=== PATIENT | female | born 1985 ===

== ENCOUNTER 2017-06-10 01:43 | Emergency (ER) | payer BC ==
[~2017-06-10] VITALS: Wt 59.0 kg
--- NOTE | 2017-06-10 02:54 | ERA ---
ER Documentation Chief Complaint Date/Time DATE: 06/10/17 TIME: 02:54 Chief Complaint AP HPI The patient is a 32-year-old female, presenting with acute epigastric abdominal pain that began about 10:30 PM, associated with vomiting of mostly mucus. She denies fever, chills, neck pain, chest pain, dyspnea, dysuria, diarrhea. She does not smoke, drank last night, denies illicit drug Past medical history: Depression Past medical history: Nasal surgery and tonsillectomy ROS All systems reviewed and are negative except as per history of present illness. Medications Home Meds Active Scripts Pantoprazole* (Protonix*) 40 Mg Tablet.dr, 40 MG PO DAILY, #20 TAB Prov:ZOIE GHOSH MD 06/10/17 Ondansetron (Ondansetron Odt) 4 Mg Tab.rapdis, 4 MG PO Q6H Y for NAUSEA AND/OR VOMITING, #10 TAB Prov:ZOIE GHOSH MD 06/10/17 Reported Medications Citalopram Hydrobromide* (Celexa*) 10 Mg Tablet, 10 MG PO DAILY, #30 TAB 06/10/17 Allergies Allergies: Uncoded Allergies: SHELLFISH (Allergy, Intermediate, vomiting, 06/10/17) Physical Exam Vitals Vital Signs Date Time Temp Pulse Resp B/P Pulse Ox O2 Delivery O2 Flow Rate FiO2 06/10/17 04:52 68 17 94/64 98 Room Air 06/10/17 02:29 97.8 84 20 122/87 99 Physical Exam Const: No acute distress. Head: Atraumatic. Eyes: Normal Conjunctiva. ENT: Normal External Ears, Nose and Mouth. Neck: Full range of motion. No meningismus. Resp: Clear to auscultation bilaterally. Cardio: Regular rate and rhythm. Abd: Soft, non distended, normal bowel sounds, Minimal epigastric and left upper quadrant tenderness, no right lower quadrant, CVA, rigidity, rebound tenderness Skin: No petechiae or rashes. Back: No midline or flank tenderness. Ext: No cyanosis, or edema. Neur: Awake and alert. No focal deficit Psych: Normal Mood and Affect. Result Diagram: 06/10/17 0315 06/10/17 0315 Results 24 hrs Laboratory Tests Test 06/10/17 03:15 06/10/17 03:26 White Blood Count 8.910^3/ul Red Blood Count 4.3810^6/ul Hemoglobin 13.5g/dl Hematocrit 39.3% Mean Corpuscular Volume 89.7fl Mean Corpuscular Hemoglobin 30.8pg Mean Corpuscular Hemoglobin Concent 34.4g/dl Red Cell Distribution Width 11.3% Platelet Count 04453^3/UL Mean Platelet Volume 10.6fl Neutrophils % 78.9% Lymphocytes % 16.2% Monocytes % 3.6% Eosinophils % 0.6% Basophils % 0.3% Nucleated Red Blood Cells % 0.0/100WBC Neutrophils # (Manual) 7.010^3/ul Lymphocytes # 1.410^3/ul Monocytes # 0.310^3/ul Eosinophils # 0.110^3/ul Basophils # 0.010^3/ul Nucleated Red Blood Cells # 0.010^3/ul Sodium Level 141mmol/L Potassium Level 4.1mmol/L Chloride Level 102mmol/L Carbon Dioxide Level 31mmol/L Anion Gap 12 Blood Urea Nitrogen 16mg/dl Creatinine 1.00mg/dl Glucose Level 108mg/dl Calcium Level 9.2mg/dl Total Bilirubin 0.2mg/dl Direct Bilirubin 0.00mg/dl Indirect Bilirubin 0.2mg/dl Aspartate Amino Transf (AST/SGOT) 21IU/L Alanine Aminotransferase (ALT/SGPT) 31IU/L Alkaline Phosphatase 75IU/L Total Protein 7.0g/dl Albumin 4.2g/dl Globulin 2.80g/dl Albumin/Globulin Ratio 1.50 Lipase 110U/L Bedside Urine pH (LAB) 8.5 Bedside Urine Protein (LAB) 1+ Bedside Urine Glucose (UA) Negative Bedside Urine Ketones (LAB) Negative Bedside Urine Blood Negative Bedside Urine Nitrite (LAB) Negative Bedside Urine Leukocyte Esterase (L Negative Current Medications Medications (Trade) Dose Ordered Sig/Jayla Route PRN Reason Start Time Stop Time Status Last Admin Dose Admin Sodium Chloride (NS) 1,000 ml @ 1,000 mls/hr Q1H STAT IV 06/10/17 03:04 06/10/17 04:03 DC 06/10/17 03:10 Morphine Sulfate (morphine) 2 mg ONCE STAT IV 06/10/17 03:04 06/10/17 03:06 DC 06/10/17 03:10 Ondansetron HCl (Zofran Inj) 4 mg ONCE STAT IV 06/10/17 03:04 06/10/17 03:06 DC 06/10/17 03:10 Ondansetron HCl (Zofran Inj) 4 mg ONCE STAT IV 06/10/17 04:52 06/10/17 04:53 UNV Procedures/MDM [place] [id number] Radiology Main Line: [phone] DIAGNOSTIC IMAGING REPORT Patient: PAULETTE LOFTON : 1985 Age: 32 Sex: F MR #: [id number] DOS: 06/10/17 0304 Ordering MD: ZOIE GHOSH MD Location: E/R Room/Bed: PROCEDURE: Abdominal ultrasound, limited. CLINICAL INDICATION: Abdominal pain. TECHNIQUE: Multiple real-time images were acquired of the patient's right upper abdomen utilizing a high resolution transducer. COMPARISON: None FINDINGS: The liver demonstrates normal echogenicity and size measuring 15.0 cm. There is no focal mass or intrahepatic biliary ductal dilatation. The portal vein is patent. The gallbladder is not distended. No gallstones are identified. There is no pericholecystic fluid or gallbladder wall thickening. The common bile duct measures 2.5 mm in maximal dimension. The visualized portions of the pancreas are unremarkable. No free fluid is identified. The right kidney is normal size and echogenicity measuring 8.4 cm. There is no focal renal mass or echogenic calculus identified. There is no obstructive uropathy. IMPRESSION: Unremarkable right upper abdominal ultrasound. .Morgan Moore MD, MD Date Time Electronically viewed and signed by .Morgan Moore MD, on 06/10/2017 04:19 .T/ CC: ZOIE GHOSH MD MEDICAL MAKING DECISION: The patient is a 32-year-old female, presenting with acute epigastric abdominal pain of unclear etiology, she was treated with 1 L normal saline for clinical dehydration, morphine 2 mg IV for pain, Zofran 4 mg IV 2 for nausea with good response The differential diagnoses considered include but are not limited to cholelithiasis, cholecystitis, cystitis, pancreatitis, hepatitis, gastritis, peptic ulcer disease, gastric ulcer, appendicitis, diverticulitis, cholangitis, choledocholithiasis, partial small bowel obstruction. Departure Diagnosis: Primary Impression: Abdominal pain Condition: Good Comments She was discharged with Zofran and Protonix I discussed the findings with the patient. I advised the patient to follow-up with the primary physician in about 1-2 days, sooner if needed and return if any concern. The patient's blood pressure was elevated (>120/80) but appears stable without evidence of hypertension emergency or urgency. The patient was counseled about the risks of hypertension and urged to pursue outpatient monitoring and therapy within a week with their primary care physician. ZOIE GHOSH MD Jun 10, 2017 02:54
[2017-06-10] MEDS ORDERED: SOD CHLORIDE 0.9% 1,000 ML IV STA (03:04)
[2017-06-10] MEDS ORDERED: morphine 2 MG INJ IV STA (03:04)
[2017-06-10] MEDS ORDERED: ONDANSETRON 4 MG INJ IV STA (03:04)
[2017-06-10 03:19] LABS: URINE BLOOD (Dip) POC Negative (NEGATIVE)
[2017-06-10 03:34] LABS: BASOPHILS % 0.3 % (0.0-2.0); EOSINOPHILS # 0.1 10^3/ul (0.0-0.5); EOSINOPHILS % 0.6 % (0.0-7.0); HEMATOCRIT 39.3 % (37.0-47.0); HEMOGLOBIN 13.5 g/dl (12.0-16.0); LYMPHOCYTES # 1.4 10^3/ul (0.8-2.9); LYMPHOCYTES % 16.2 % (15.0-51.0); MEAN CORPUSCULAR HEMOGLOBIN 30.8 pg (29.0-33.0); MEAN CORPUSCULAR HGB CONC 34.4 g/dl (32.0-37.0); MEAN CORPUSCULAR VOLUME 89.7 fl (82.0-101.0); MEAN PLATELET VOLUME 10.6 fl (7.4-10.4); MONOCYTE # 0.3 10^3/ul (0.3-0.9); MONOCYTES % 3.6 % (0.0-11.0); NEUTROPHILS % 78.9 % (39.0-77.0); PLATELET COUNT 298 10^3/UL (140-415); RED BLOOD COUNT 4.38 10^6/ul (4.20-5.40); RED CELL DISTRIBUTION WIDTH 11.3 % (11.5-14.5); WHITE BLOOD COUNT 8.9 10^3/ul (4.8-10.8)
[2017-06-10 03:49] LABS: ALBUMIN 4.2 g/dl (3.3-4.9); ALBUMIN/GLOBULIN RATIO 1.5; BILIRUBIN,INDIRECT 0.2 mg/dl (0-1.1); BILIRUBIN,TOTAL 0.2 mg/dl (0.2-1.3); CALCIUM 9.2 mg/dl (8.4-10.2); POTASSIUM 4.1 mmol/L (3.5-5.1)
[2017-06-10] MEDS ORDERED: CITA10TA72 PO (04:05)
--- NOTE | 2017-06-10 04:20 | RADRPT ---
PROCEDURE: Abdominal ultrasound, limited. CLINICAL INDICATION: Abdominal pain. TECHNIQUE: Multiple real-time images were acquired of the patient's right upper abdomen utilizing a high resolution transducer. COMPARISON: None FINDINGS: The liver demonstrates normal echogenicity and size measuring 15.0 cm. There is no focal mass or in trahepatic biliary ductal dilatation. The portal vein is patent. The gallbladder is not distended. No gallstones are identified. There is no pericholecystic fluid or gallbladder wall thickening. The common bile duct measures 2.5 mm in maximal dimension. The visualized portions of the pancreas are unremarkable. No free fluid is identified. The right kidney is normal size and echogenicity measuring 8.4 cm. There is no focal renal mass or echogenic calculus identified. There is no obstructive uropathy. IMPRESSION: Unremarkable right upper abdominal ultrasound. .Morgan Moore MD, MD Date Time Electronically viewed and signed by .Morgan Moore MD, MD on 06/10/2017 04:19 .T/
[2017-06-10 04:52] VITALS: BP 94/64; PULSE 68; RESP 17
[2017-06-10] MEDS ORDERED: PANT40TA3 PO (04:53)
[2017-06-10] MEDS ORDERED: ONDA4TAB14 PO (04:53)
[2017-06-10] MEDS ORDERED: ONDANSETRON 4 MG INJ IV ONE (04:56)
== END 2017-06-10 05:05 | disposition home or self-care (01) ==
LOC: E/R 01:43
DX: R10.13 Epigastric pain (principal)
CPT/HCPCS: 36415; 76705; 80053; 81003; 83690; 85025; 96374; 96375; 96376; 99285; J2270; J2405; J7030